=== PATIENT | female | born 1950 | race Caucasian/White ===

== ENCOUNTER 2020-10-01 10:49 | Inpatient (IN) | payer MEDICARE ==
[2020-10-01] MEDS ORDERED: LIPITOR 40MG TA40 MG PO (16:10)
[2020-10-01] MEDS ORDERED: TYLENOL 325MG325 MG PO (16:10)
[2020-10-01] MEDS ORDERED: [UNRECOGNIZED DRUG - OTHER] PO (16:10)
[2020-10-01] MEDS ORDERED: ATHLETE'S FOOT1% TP (16:11)
[2020-10-01] MEDS ORDERED: COLCRYS0.6 MG PO (16:12)
[2020-10-01] MEDS ORDERED: B-122500 MCG SL (16:12)
[2020-10-01] MEDS ORDERED: FLORINEF 00.1 MG/TAB PO (16:13)
[2020-10-01] MEDS ORDERED: BENTYL 20MG20 MG/TAB PO (16:13)
[2020-10-01] MEDS ORDERED: PLAQUENIL 200M200 MG PO (16:14)
[2020-10-01] MEDS ORDERED: PHARMASSURE FO0.8 MG PO (16:14)
[2020-10-01] MEDS ORDERED: ACIDOPHILUS LA1 EAC1 PO (16:14)
[2020-10-01] MEDS ORDERED: XARELTO20 MG PO (16:15)
[2020-10-01] MEDS ORDERED: LEVOTHYROXINE0.05 MG PO (16:15)
[2020-10-01] MEDS ORDERED: EFFEXOR XR150 M1 PO (16:16)
[2020-10-01] MEDS ORDERED: ENTRESTO 24 MG1 EACH PO (16:16)
[2020-10-01] MEDS ORDERED: PREDNISONE 5MG5 MG PO (16:17)
[2020-10-01] MEDS ORDERED: PREDNISONE10 MG PO (16:17)
[2020-10-01] MEDS ORDERED: RISPERDAL 0.5M0.5 MG PO (16:18)
[2020-10-01 16:59] VITALS: BP 105/68
[2020-10-01 17:20] LABS: EOS % 0.1 % (1.0-5.0); HEMATOCRIT 33.5 % (37.0-47.0); HEMOGLOBIN 9.8 g/dL (12.5-16.0); LYMPH# 1.1 (1.50-4.00); MEAN CELL VOLUME 80 fl (78-100); MEAN CORPUSCULAR HEMOGLOBIN 23 pg (27-31); MEAN CORPUSCULAR HGB CONC 29 g/dL (33-37); MEAN PLATELET VOLUME 10.4 fl (7.4-10.4); MONO # 0.7 (0.20-0.80); NEU # 6.4 (1.40-6.50); PLATELET COUNT 329 K/mm3 (130-400); RED BLOOD COUNT 4.21 M/mm3 (4.10-5.30); RED CELL DISTRIBUTION WIDTH 19.3 % (11.5-14.5); WHITE BLOOD COUNT 8.3 K/mm3 (4.8-10.8)
[2020-10-01 17:26] LABS: ALBUMIN 3.6 g/dL (3.4-4.8); POTASSIUM 4.3 mmol/L (3.5-5.1)
[2020-10-01 17:28] LABS: TOTAL PROTEIN 5.3 g/dL (6.2-8.1)
[2020-10-01 17:30] LABS: TOTAL BILIRUBIN 0.3 mg/dL (0.2-1.2)
[2020-10-02 01:51] LABS: URINE APPEARANCE CLOUDY; URINE COLOR YELLOW
[2020-10-02 01:52] LABS: URINE BILIRUBIN NEGATIVE (NEGATIVE); URINE BLOOD NEGATIVE (NEGATIVE); URINE GLUCOSE NEGATIVE (NEGATIVE); URINE KETONE NEGATIVE (NEGATIVE); URINE LEUKOCYTE ESTERASE TRACE (NEGATIVE); URINE MUCUS PRESENT (NOT PRESENT); URINE NITRATE NEGATIVE (NEGATIVE); URINE PROTEIN(semi-quant) TRACE mg/dL (NEGATIVE); URINE UROBILINOGEN NORMAL (NORMAL)
[2020-10-02 05:49] VITALS: BP 119/72
[2020-10-02 17:22] VITALS: BP 98/65
[2020-10-03 05:35] VITALS: BP 118/75
[2020-10-03 17:17] VITALS: BP 127/74
[2020-10-04 06:05] VITALS: BP 128/79
[2020-10-04 18:00] VITALS: BP 135/78
[2020-10-05 05:55] VITALS: BP 118/75
[2020-10-05 17:14] VITALS: BP 102/65
[2020-10-06 05:49] VITALS: BP 117/72
[2020-10-06 18:20] VITALS: BP 98/66
[2020-10-06 18:35] VITALS: BP 100/64
[2020-10-07 06:12] VITALS: BP 114/72
[2020-10-07 09:24] VITALS: BP 106/67
[2020-10-07 09:40] VITALS: BP 98/60
[2020-10-07 12:38] VITALS: BP 115/76
[2020-10-07 16:24] VITALS: BP 104/76
[2020-10-08 05:38] VITALS: BP 122/71
[2020-10-08 15:36] VITALS: BP 93/56
[2020-10-08 18:28] VITALS: BP 105/64
[2020-10-09 05:56] VITALS: BP 127/86
[2020-10-09 15:53] VITALS: BP 121/76
[2020-10-09 22:59] LABS: URINE APPEARANCE CLEAR; URINE BILIRUBIN NEGATIVE (NEGATIVE); URINE BLOOD NEGATIVE (NEGATIVE); URINE COLOR YELLOW; URINE GLUCOSE NEGATIVE (NEGATIVE); URINE KETONE NEGATIVE (NEGATIVE); URINE LEUKOCYTE ESTERASE NEGATIVE (NEGATIVE); URINE NITRATE NEGATIVE (NEGATIVE); URINE PROTEIN(semi-quant) NEGATIVE (NEGATIVE); URINE UROBILINOGEN NORMAL (NORMAL)
[2020-10-10 05:57] VITALS: BP 146/85
[2020-10-10 17:03] VITALS: BP 109/74
[2020-10-11 06:13] VITALS: BP 157/89
[2020-10-11 14:14] LABS: HEMATOCRIT 31.4 % (37.0-47.0); HEMOGLOBIN 9.2 g/dL (12.5-16.0); MEAN CELL VOLUME 78 fl (78-100); MEAN PLATELET VOLUME 9.5 fl (7.4-10.4); PLATELET COUNT 441 K/mm3 (130-400); RED BLOOD COUNT 4.04 M/mm3 (4.10-5.30); WHITE BLOOD COUNT 7.2 K/mm3 (4.8-10.8)
[2020-10-11 14:30] LABS: POTASSIUM 3.8 mmol/L (3.5-5.1); SODIUM 142 mmol/L (136-145)
[2020-10-11 14:31] LABS: CALCIUM 8.7 mg/dL (8.3-10.5); GLUCOSE 179 mg/dL (65-105)
[2020-10-11 14:33] LABS: CARBON DIOXIDE 24 mmol/L (23-31)
[2020-10-11 14:39] LABS: LYMPHOCYTE 6 % (20-51); MEAN CORPUSCULAR HEMOGLOBIN 23 pg (27-31); MEAN CORPUSCULAR HGB CONC 29 g/dL (33-37); MONOCYTE 2 % (3-10); NEUTROPHILS 92 % (42-75); RED CELL DISTRIBUTION WIDTH 19.2 % (11.5-14.5)
[2020-10-11 14:40] LABS: MICROCYTOSIS 1+
[2020-10-11 15:22] LABS: ERYTHROCYTE SEDIMENTATION RATE 2 mm/hr (0-30)
[2020-10-11 17:07] VITALS: BP 117/77
[2020-10-12 06:05] VITALS: BP 111/84
[2020-10-12] MEDS ORDERED: XARELTO15 MG PO (15:31)
[2020-10-12 17:37] VITALS: BP 114/71
== END 2020-10-12 20:10 | disposition home health service (06) | DRG 948 ==
LOC: MED/SURG 10:49
PROVIDERS: Nurse Practitioner Family; ADMIT Nurse Practitioner
DX: R53.81 Other malaise (principal); I50.32 Chronic diastolic (congestive) heart failure; F33.9 Major depressive disorder, recurrent, unspecified; L03.115 Cellulitis of right lower limb; R26.9 Unspecified abnormalities of gait and mobility; M32.9 Systemic lupus erythematosus, unspecified; I25.10 Atherosclerotic heart disease of native coronary artery without angina pectoris; D86.9 Sarcoidosis, unspecified; D50.9 Iron deficiency anemia, unspecified; I87.2 Venous insufficiency (chronic) (peripheral); I11.0 Hypertensive heart disease with heart failure; E03.9 Hypothyroidism, unspecified; I25.2 Old myocardial infarction; Z79.52 Long term (current) use of systemic steroids; Z79.01 Long term (current) use of anticoagulants; Z86.711 Personal history of pulmonary embolism; Z86.718 Personal history of other venous thrombosis and embolism; Z95.828 Presence of other vascular implants and grafts; Z91.81 History of falling
CPT/HCPCS: J0696; J7512